=== PATIENT | male | born 1990 | race Caucasian/White ===

== ENCOUNTER 2024-04-07 18:57 | Emergency (ER) | payer OTHER, SELFPAY ==
[2024-04-07 19:22] VITALS: BP 109/59; PULSE 85; RESP 18; TEMP 36.7; O2SAT 97
--- NOTE | 2024-04-07 19:41 | ED.SKABFB ---
HPI - Skin/Abscess/Foreign Bdy General Chief complaint: Skin/Abscess/Foreign Body Stated complaint: skin discoloration stomach, irritation rt shoulder Time Seen by Provider: 04/07/24 19:12 Source: patient Mode of arrival: ambulatory Limitations: no limitations History of Present Illness HPI narrative: Nish is a 33 year old male patient presenting to the clinic today with complaints of a skin discoloration to his left lower abdomen where he gave himself a injection of step lb. He also reports some right lateral upper back paresthesia like pain. States it is sharp with movement at times and feels numb and feels as though there is pen is a needles. Related Data Home Medications ?Medication ?Instructions ?Recorded ?Confirmed ?Last Taken ?Type tirzepatide (weight loss) 10 mg subcut 04/07/24 Unknown History mg/0.5 mL subcutaneous pen injector (Zepbound) Allergies Allergy/AdvReac Type Severity Reaction Status Date / [facility] Allergy Mild Rash Verified 04/07/24 19:36 Review of Systems Review of Systems: Pertinent positives per HPI. Patient denies any fever, chills, headache, visual changes, dizziness, cough, runny nose, sore throat, shortness of breath, chest pain, palpitations, nausea, vomiting, diarrhea, constipation, abdominal pain, or any urinary issues. PMFSH Comments At the time of my signature, I reviewed and agree with the nursing past medical, surgical, social, and family history. There is no relevant family history pertinent to the patient complaint. Exam Narrative: General: Well-developed, well nourished, in no apparent distress Head: Normocephalic, atraumatic. Cardio: Regular rate and rhythm, s1 and s2 normal, no murmur appreciated. Resp: Clear to auscultation bilaterally, no rhonchi, rales, wheezing or rubs. Integumentary: Mancos, warm, and dry, intact without lesion, no rashes. Superficial Bruising noted to the left lower abdomen from injection without hematoma, no signs of infection, tenderness to palpation over the right upper back just lateral to the scapula, no redness, swelling, or rash. Course Course Emergency Course: Portions of this record may have been created with voice recognition software. Level of Care: Express Care Visit Vital Signs Vital signs: Vital Signs Temperature 36.7 C 04/07/24 19:22 Pulse Rate 85 04/07/24 19:22 Respiratory Rate 18 04/07/24 19:22 Blood Pressure 109/59 L 04/07/24 19:22 Pulse Oximetry 97 04/07/24 19:22 Oxygen Delivery Room Air 04/07/24 19:22 Temperature 36.7 C 04/07/24 19:22 Pulse Rate 85 04/07/24 19:22 Respiratory Rate 18 04/07/24 19:22 Blood Pressure 109/59 L 04/07/24 19:22 Pulse Oximetry 97 04/07/24 19:22 Oxygen Delivery Room Air 04/07/24 19:22 Vital signs reviewed MDM - Skin/Abscess/Foreign Bdy MDM Narrative Medical decision making narrative: At the time of visit patient is resting comfortably on the exam table. Patient appears to be nontoxic. Plan: I suspect patient has paresthesia to the right upper lateral back as well as superficial bruising to the left lower abdomen from medication injection. Supportive measures were discussed with the patient and they voiced understanding discharge instructions and agrees to treatment plan. Return precautions reviewed Differential Diagnosis Differential diagnosis: Likely abscess of skin or subcutaneous tissue, viral exanthem, dermatophytosis, urticaria, herpes zoster, allergic reaction to drug, cellulitis, eczema, insect bites, impetigo, contact dermatitis and other Discharge Plan Discharge Clinical Impression: Painful paresthesia Superficial bruising of abdominal wall Qualifiers: Encounter type: initial encounter Qualified Code(s): S30.1XXA - Contusion of abdominal wall, initial encounter Patient Disposition: Home, Self-Care Condition: Stable Instructions: Antibiotic Form, Contusion in Adults (ED), Paresthesia (ED) Additional Instructions: I suspect your paresthesias likely due to the medication your taking Bruising visualized on your abdomen likely from medication injection Take Medrol Dosepak if your paresthesia persist May take Tylenol/ibuprofen as needed for pain May apply Aspercreme, blue emu, or lidocaine to the affected area to help alleviate pain Follow-up with your primary care doctor next week if symptoms persist Patient Language: Estonian Prescriptions: New methylprednisolone [Medrol (Dl)] 4 mg tablets,dose pack See Rx Instructions PO .COMPLEX Qty: 21 0RF Rx Instructions: orally per package directions No Action Zepbound 10 mg/0.5 mL pen injector SUBCUT Follow-up/Referrals: UNKNOWN,DOCTOR [Primary Care Provider] - Time of Disposition: 19:38 Quality NIHSS Nursing Documentation ED NIHSS nursing documentation: reviewed/agree
--- OUTSIDE RECORDS SUMMARY | 2024-04-09 20:23 | XMS_ITS | Clinical Summary ---
Author Organization [facility] Address [address] [place] [address] Phone Care Team Providers Care Business Analyst Intern Name Role Phone Miscellaneous, Not In File Primary Care Provider Unavailable Corona Rodriguez MD Unavailable [phone] Allergies Active Allergy Reactions Criticality Noted Date Comments Cefaclor Unknown 12/08/1990 Pt doesn't know what his reaction was. Childhood reaction Medications esomeprazole DR (NexIUM) 40 mg capsule Take 1 capsule (40 mg total) by mouth 12/08/2009 Active omega 2-rty-tnz-fish oil (Fish OiL) 1,000 (120-180) mg capsule 01/13/2020 Active tirzepatide, weight loss, (Zepbound) 12.5 mg/0.5 mL pen injector 12/17/2023 Active Active Problems Problem Noted Date Diagnosed Date GERD (gastroesophageal reflux disease) 0 Encounters Date Type Department Care Team Description 03/10/2024 Orders Only [facility] [address] [place] [address] Unknown, Notinfile 03/09/2024 Documentation [facility] Ot[facility]ology [address], [address] [place] [address] Georgie Mayo CMA 02/18/2024 Orders Only [facility] [address] [place] [address] Unknown, Notinfile 02/09/2024 9:14 AM VOLTMETER OPERATOR - 02/09/2024 11:59 PM VOLTMETER OPERATOR Hospital Encounter [facility] ED [address] [place] [address] Pulsatile tinnitus Discharge Disposition: Discharge to home or self care 01/14/2024 3:40 PM CDT Office Visit [facility] Otolaryngology [address] [place] [address], [address] [place] [address] Manan Lawrence MD Tinnitus aurium, right (Primary Dx); 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 01/14/2024 3:00 PM CDT Procedure visit [facility] [address] [place] [address], [address] [place] [address] Impairment, auditory discrimination, bilateral (Primary Dx) 01/14/2024 Orders Only [facility]ology [address] [place] [address], [address] [place] [address] Georgie Mayo CMA Pulsatile tinnitus (Primary Dx) 01/14/2024 Orders Only [facility]ology [address] [place] [address], [address] [place] [address] Paty Gonzalez RMA Semicircular canal dehiscence syndrome (Primary Dx) from Last 3 Months Surgical History Surgery Date Site/Laterality Comments SINUS SURGERY 2020 Medical History Medical History Date Comments Allergic rhinitis GERD (gastroesophageal reflux disease) Family History Medical History Relation Name Comments Snoring Father Alec Rashes / Skin problems Mother Karhy Snoring Mother Karhy Relation Name Status Comments Father Alec Mother Karhy Social History Tobacco Use Types Packs/Day Years Used Date Smoking Tobacco: Never Tobacco Cessation:Counseling Given: Not Answered Sex and Gender Information Value Date Recorded Sex Assigned at Not on file Legal Sex Male 1:01 PM CDT Gender Identity Male 01/13/2024 5:03 PM CDT Sexual Orientation Not on file Obstetrics History Plan of Treatment Health Maintenance Due Date Last Done Comments Depression Screening 1989 Hepatitis C Screening 1989 DTaP/Tdap/Td Vaccine (1 - Tdap) 2000 Varicella Vaccines (1 of 2 - 13+ 2-dose series) 2002 Hepatitis B Screening 06/21/2007 Regular Well Visit/Exam 18-64 06/21/2007 Influenza Vaccine (#1) 2023 HPV Vaccines Aged Out No longer eligi ble based on patient's age to complete this topic Pneumococcal vaccine <65 Aged Out No longer eligible based on patient's age to complete this topic Procedures Procedure Name Priority Date/Time Associated Diagnosis Comments SURGICAL PATHOLOGY Routine 03/10/2024 12:10 PM VOLTMETER OPERATOR SURGICAL PATHOLOGY Routine 02/18/2024 12:[address] INTERNAL AUDITORY CANALS POSTERIOR FOSSA WO CONTRAST Schedule Routine, Read Routine (OP Routine) 02/09/2024 9:59 AM VOLTMETER OPERATOR Pulsatile tinnitus AUDBASE RESULTS 01/14/2024 3:35 PM CDT from Last 3 Months Results * Surgical pathology (03/10/2024 12:10 PM VOLTMETER OPERATOR) Skin, punch biopsy 03/10/2024 12:10 PM VOLTMETER OPERATOR 03/12/2024 7:16 AM VOLTMETER OPERATOR Narrative 03/13/2024 12:20 PM VOLTMETER OPERATOR [facility] results best viewed via link to PDF [facility] [address] [place] [address]., ??[address] [place] [address] ? [email or web address] Note to Patients: ??This report may contain a detailed description of human tissue sent by a health care provider to the laboratory for pathologic evaluation. ??The content of this report is essential for diagnosis and may provide important critical findings. ??This information may be unfamiliar to patients to review without a medical professional present. ?? It is advised that the patient review this report in the presence of a health care provider who can answer questions and explain the details. FINAL REPORT Patient Information: PATIENT NAME: ??SUDHEER QUARLES ? SEX: ??M ? : ??1990 (Age: 33) ? Specimen Information: COLLECTED: ??03/10/2024 ? RECEIVED: ??03/12/2024 ? REPORTED: ??03/13/2024 ? Submitting Physician Information: Xiao Joe, [facility]- [facility], [address] [place] [address] ??[id number], ? DERMATOPATHOLOGY REPORT RESULTS ?? DIAGNOSIS: SKIN, RIGHT SUPERIOR UPPER BACK, PUNCH BIOPSY: ? SCAR ? Note: ??There is no evidence of a neoplasm in these sections. exr/ajrr By this signature, I attest that the above diagnosis is based upon my personal examination of the slides(and/or other material indicated in the diagnosis). Demetrius Reyna M.D. ?? Report Electronically Reviewed and Signed Out By ??Demetrius Reyna M.D. 03/13/2024 12:20:51 CLINICAL INFORMATION EPIDERMAL INCLUSION CYST SPECIMEN DATA MICROSCOPIC DESCRIPTION: There is a proliferation of fibroblasts aligned parallel to the skin surface interposed among linearly arranged, thickened collagen bundles and small blood vessels. (L90.5) GROSS DESCRIPTION: Received in a formalin-containing bottle is a cylindrical piece of pale love, finely scaling, slightly wrinkled skin and adipose tissue measuring 0.5 by 0.5 by 1.0 cm. The surgical margin is inked blue. The specimen is sectioned into 2 pieces and submitted entirely in a single cassette. Also within the bottle is an irregularly shaped portion of pale love, mildly domed soft tissue measuring 0.7 by 0.3 by 0.3 cm. ??The specimen is sectioned into 1 pieces revealing pale love, mildly domed cut surfaces. ??The specimen is entirely submitted in a single cassette. dh/anc ICD-9 A; ZSD.1387 ? Clerical Data A; 12947 The characteristics of special, immunohistochemical, and immunofluorescence stains and in-situ hybridization tests performed by the [facility] were deemed acceptable in ongoing air quality manager measures and in compliance with regulations drawn from the Clinical Laboratory Improvement Act iz8997 (CLIA '88). Control reactions for all stains performed were deemed adequate and appropriate by a pathologist prior to evaluation of patient tissue. Some diagnoses were rendered with the assistance of laboratory-developed tests utilizing analyte-specific reagents; the performance characteristic of these tests were determined by [facility] and are not cleared or approved by the [place] Food an Drug administration. Laboratory developed test may only be performed in a facility that is certified by the [facility] as a high-complexity laboratory under CLIA '88. These tests are used for clinical purposes and are not investigational. us Notinfile Unknown LAB PATHOLOGY ORDERABLES Final Result * Surgical pathology (02/18/2024 12:00 AM VOLTMETER OPERATOR) Skin, shave biopsy 02/18/2024 02/19/2024 5:53 AM VOLTMETER OPERATOR Narrative 02/20/2024 11:25 AM VOLTMETER OPERATOR EPIC results best viewed via link to PDF [facility] [address] [place], [place] [address]., ??[address] [place] [address] ? [email or web address] Note to Patients: ??This report may contain a detailed description of human tissue sent by a health care provider to the laboratory for pathologic evaluation. ??The content of this report is essential for diagnosis and may provide important critical findings. ??This information may be unfamiliar to patients to review without a medical professional present. ?? It is advised that the patient review this report in the presence of a health care provider who can answer questions and explain the details. FINAL REPORT Patient Information: PATIENT NAME: ??EVON, WILL ? SEX: ??M ? : ??1990 (Age: 33) ? Specimen Information: COLLECTED: ??02/18/2024 ? RECEIVED: ??02/19/2024 ? REPORTED: ??02/20/2024 ? Submitting Physician Information: Xiao Joe, SAFETY ADMIN ASSISTANT- [facility], [address] [place] [address] ??[phone], ? DERMATOPATHOLOGY REPORT RESULTS ?? DIAGNOSIS: A. ??SKIN, RIGHT SUPERIOR OCCIPITAL SCALP, SHAVE BIOPSY: ? DERMAL MELANOCYTIC NEVUS ?? B. ??SKIN, RIGHT SUPERIOR UPPER BACK, SHAVE BIOPSY: ? DERMAL MELANOCYTIC NEVUS ?? C. ??SKIN, MID POSTERIOR NECK, SHAVE BIOPSY: ? COMPOUND MELANOCYTIC NEVUS yolette/ajrr By this signature, I attest that the above diagnosis is based upon my personal examination of the slides(and/or other material indicated in the diagnosis). Demetrius Reyna M.D. ?? Report Electronically Reviewed and Signed Out By ??Demetrius Reyna M.D. 02/20/2024 11:25:37 CLINICAL INFORMATION A. NEOPLASM OF UNCERTAIN BEHAVIOR VS. IRRITATED NEVUS B. NEOPLASM OF UNCERTAIN BEHAVIOR VS. DYSPLASTIC NEVUS C. NEOPLASM OF UNCERTAIN BEHAVIOR VS. IRRITATED NEVUS SPECIMEN DATA MICROSCOPIC DESCRIPTION: A-B. There are uniform nests, cords and strands of small, monomorphous melanocytes within the dermis. (D22.9) C. Enlarged monomorphous melanocytes are arranged as solitary units and nests at the dermo-epidermal junction and as uniform nests, cords and strands within the dermis. (D22.9) GROSS DESCRIPTION: A. Received in a formalin-containing bottle is a superficial fragment of pale love, finely scaling, and hair-bearing skin measuring 0.5 by 0.5 by 0.2 cm. The surgical margin is inked blue. The specimen is sectioned into 2 pieces and submitted entirely in a single cassette. Due to shrinkage, measurements may be different than those at the time of procedure. B. Received in a formalin-containing bottle is a superficial fragment of pale love, finely scaling, and hair-bearing skin measuring 0.6 by 0.5 by 0.2 cm. The surgical margin is inked blue. The specimen is sectioned into 2 pieces and submitted entirely in a single cassette. Due to shrinkage, measurements may be different than those at the time of procedure. C. Received in a formalin-containing bottle is a superficial fragment of pale love, finely scaling, and hair-bearing skin measuring 0.6 by 0.6 by 0.1 cm. The surgical margin is inked blue. The specimen is sectioned into 3 pieces and submitted entirely in a single cassette. Due to shrinkage, measurements may be different than those at the time of procedure. exr/dxv ICD-9 ZSD.407 ZSD.808 ? Clerical Data A; 84363 B; 21273 C; 18916 The characteristics of special, immunohistochemical, and immunofluorescence stains and in-situ hybridization tests performed by the [facility] were deemed acceptable in ongoing air quality manager measures and in compliance with regulations drawn from the Clinical Laboratory Improvement Act up9766 (CLIA '88). Control reactions for all stains performed were deemed adequate and appropriate by a pathologist prior to evaluation of patient tissue. Some diagnoses were rendered with the assistance of laboratory-developed tests utilizing analyte-specific reagents; the performance characteristic of these tests were determined by [facility] and are not cleared or approved by the [place] Food an Drug administration. Laboratory developed test may only be performed in a facility that is certified by the [facility] as a high-complexity laboratory under CLIA '88. These tests are used for clinical purposes and are not investigational. us Notinfile Unknown LAB PATHOLOGY ORDERABLES Final Result * CT Internal Auditory Canals Posterior Fossa WO Contrast (02/09/2024 9:59 AM VOLTMETER OPERATOR) Anatomical Region Laterality Modality Head and Neck N/A Computed Tomogra phy 02/10/2024 9:07 AM VOLTMETER OPERATOR Narrative 02/10/2024 10:23 AM VOLTMETER OPERATOR EXAM DESCRIPTION: ?? CT INTERNAL AUDITORY CANALS POSTERIOR FOSSA WO CONTRAST REASON FOR STUDY: Right aural fullness and pulsatile tinnitus since 2018 initially occurring status post septoplasty and turbinate surgery with eventual resolution (after unspecified duration) though with subsequent chronic intermittent right aural fullness in advance of right pulsatile tinnitus for the past few months. ??No alteration in hearing; no otalgia, otorrhea, or vertigo; no autophony or sensitivity to loud sounds; no provided history of trauma. ??No provided past medical history. ??Patient denies history of otologic surgeries. TECHNIQUE: Noncontrast thin section axial images through the temporal bones and skull base were obtained and reviewed at bone windows and bone algorithm with coronal. Automated exposure control was used as a dose optimization technique for this examination. COMPARISON: ?? No prior imaging available at time of interpretation. FINDINGS: RIGHT SIDE: EXTERNAL AUDITORY CANAL: ?? Widely patent. TYMPANIC MEMBRANE: ?? No masses, thickening, or medial retraction. OSSICLES: ?? Normal. ?? MIDDLE EAR, EPITYMPANUM and HYPOTYMPANUM: ?? No abnormal soft tissue, fluid, or mass with preservation of the scutum. INNER EAR STRUCTURES: ?? Normal vestibule and cochlea. ??Normal aqueducts. ?? Normal semicircular canals. INTERNAL AUDITORY CANAL: ?? Normal bony canal without narrowing or widening. ?? No calcified or ossified masses. TEMPOROMANDIBULAR JOINT: ?? No acute abnormality. MASTOID AIR CELLS: ?? Developed and well aerated. LEFT SIDE: EXTERNAL AUDITORY CANAL: ?? Widely patent. TYMPANIC MEMBRANE: ?? No masses, thickening, or medial retraction. OSSICLES: ?? Normal. ?? MIDDLE EAR, EPITYMPANUM and HYPOTYMPANUM: ?? No abnormal soft tissue, fluid, or mass with preservation of the scutum. INNER EAR STRUCTURES: ?? Normal vestibule and cochlea. ??Normal aqueducts. Normal semicircular canals. INTERNAL AUDITORY CANAL: ?? Normal bony canal without narrowing or widening. ?? No calcified or ossified masses. TEMPOROMANDIBULAR JOINT: ?? No acute abnormality. MASTOID AIR CELLS: ?? Well-developed with slight scattered fluid in the dependent most aspect of the left mastoid air cells. CENTRAL SKULL BASE: ?? Normal foramina. ??No lytic or blastic lesions. INFERIOR BRAIN: ?? Limited view poorly evaluated. LIMITED VIEW OF PARANASAL SINUSES IN THE FIELD OF VIEW: ?? No significant mucosal thickening and no fluid levels of the visualized paranasal sinuses. OTHER: ?? No other significant finding. IMPRESSION: ?? 1. ?? Slight scattered fluid in the dependent most aspect of the left mastoid air cells. 2. ?? Otherwise, unremarkable CT evaluation of temporal bone anatomy. THIS IS AN ELECTRONICALLY VERIFIED FINAL REPORT 02/10/2024 10:23 AM - Electronically signed by ??Ike KAISER D: ??02/10/2024 10:23 AM T: Report ID: [id number] Reading Location: ??[id number] Procedure Note Ike Newman MD - 02/10/2024 EXAM DESCRIPTION: CT INTERNAL AUDITORY CANALS POSTERIOR FOSSA WOCONTRAST REASON FOR STUDY: Right aural fullness and pulsatile tinnitus since 2018 initially occurring status post septoplasty and turbinate surgery with eventual resolution (after unspecified duration) though with subsequent chronic intermittent right aural fullness in advance of right pulsatile tinnitus for the past few months. No alteration in hearing; no otalgia, otorrhea, or vertigo; no autophony or sensitivity to loud sounds; noprovided history of trauma. No provided past medical history. Patient denieshistory of otologic surgeries. TECHNIQUE: Noncontrast thin section axial images through the temporalbones and skull base were obtained and reviewed at bone windows and bonealgorithm with coronal. Automated exposure control was used as a dose optimization technique for this examination. COMPARISON: No prior imaging available at time of interpretation. FINDINGS: RIGHT SIDE: EXTERNAL AUDITORY CANAL: Widely patent. TYMPANIC MEMBRANE: No masses, thickening, or medial retraction. OSSICLES: Normal. MIDDLE EAR, EPITYMPANUM and HYPOTYMPANUM: No abnormal soft tissue,fluid, or mass with preservation of the scutum. INNER EAR STRUCTURES: Normal vestibule and cochlea. Normal aqueducts. Normal semicircular canals. INTERNAL AUDITORY CANAL: Normal bony canal without narrowing orwidening. No calcified or ossified masses. TEMPOROMANDIBULAR JOINT: No acute abnormality. MASTOID AIR CELLS: Developed and well aerated. LEFT SIDE: EXTERNAL AUDITORY CANAL: Widely patent. TYMPANIC MEMBRANE: No masses, thickening, or medial retraction. OSSICLES: Normal. MIDDLE EAR, EPITYMPANUM and HYPOTYMPANUM: No abnormal soft tissue,fluid, or mass with preservation of the scutum. INNER EAR STRUCTURES: Normal vestibule and cochlea. Normal aqueducts. Normal semicircular canals. INTERNAL AUDITORY CANAL: Normal bony canal without narrowing orwidening. No calcified or ossified masses. TEMPOROMANDIBULAR JOINT: No acute abnormality. MASTOID AIR CELLS: Well-developed with slight scattered fluid in the dependent most aspect of the left mastoid air cells. CENTRAL SKULL BASE: Normal foramina. No lytic or blastic lesions. INFERIOR BRAIN: Limited view poorly evaluated. LIMITED VIEW OF PARANASAL SINUSES IN THE FIELD OF VIEW: No significant mucosal thickening and no fluid levels of the visualized paranasalsinuses. OTHER: No other significant finding. IMPRESSION: 1. Slight scattered fluid in the dependent most aspect of the leftmastoid air cells. 2. Otherwise, unremarkable CT evaluation of temporal bone anatomy. THIS IS AN ELECTRONICALLY VERIFIED FINAL REPORT 02/10/2024 10:23 AM - Electronically signed by Ike Newman M.D. AWILDA T: Report ID: [id number] Reading Location: [id number] us Manan Lawrence MD IMG CT PROCEDURES Final Res ult * [facility] Results (01/14/2024 3:35 PM CDT) us Provider Scanning AUDIOLOGY SERVICES ORDERABLES Final Result from Last 3 Months Insurance Nuvilex Nuv[employer] Care Teams Business Analyst Intern Relationship Specialty Start Date End Date Miscellaneous, Not In File PCP - General 03/12/24 Corona Rodriguez MD [id number] [facility] [address] [place] [address] Internal Medicine 03/12/24
--- OUTSIDE RECORDS SUMMARY | 2024-04-09 20:23 | XMS_ITS | Referral Summary ---
Author Organization [facility] Address [address] [place] [address] Phone Care Team Providers Care Stationary Engineer Supervisor Name Role Phone Miscellaneous, Not In File Primary Care Provider Unavailable Corona Rodriguez MD Unavailable [phone] Encounters Date Type Department Care Team Description 03/10/2024 Orders Only [facility] [address] [place] [address] Unknown, Notinfile 03/09/2024 Documentation [facility] Otolaryngology [address], [address] [place] [address] Georgie Mayo CMA 02/18/2024 Orders Only [facility] [address] [place] [address] Unknown, Notinfile 02/09/2024 9:14 AM EARLY CHILDHOOD TEACHER ASSISTANT - 02/09/2024 11:59 PM EARLY CHILDHOOD TEACHER ASSISTANT Hospital Encounter [facility] [address] [place] [address] Pulsatile tinnitus Discharge Disposition: Discharge to home or self care 01/14/2024 Orders Only [facility] Otolaryngology [address], [address] [place] [address] Georgie Mayo CMA Pulsatile tinnitus (Primary Dx) 01/14/2024 Orders Only [facility] Otolaryngology [address], [address] [place] [address] Paty Gonzalez RMA Semicircular canal dehiscence syndrome (Primary Dx) 01/14/2024 3:40 PM CDT Office Visit [facility] Otolaryngology 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, [address] [place] [address] Impairment, auditory discrimination, bilateral (Primary Dx) from Last 3 Months Allergies Active Allergy Reactions Criticality Noted Date Comments Cefaclor Unknown 12/08/1990 Pt doesn't know what his reaction was. Childhood reaction Medications esomeprazole DR (NexIUM) 40 mg capsule Take 1 capsule (40 mg total) by mouth 12/08/2009 Active omega 8-cyt-jma-fish oil (Fish OiL) 1,000 (120-180) mg capsule 01/13/2020 Active tirzepatide, weight loss, (Zepbound) 12.5 mg/0.5 mL pen injector 12/17/2023 Active Active Problems Problem Noted Date Diagnosed Date GERD (gastroesophageal reflux disease) 0 Social History Tobacco Use Types Packs/Day Years Used Date Smoking Tobacco: Never Tobacco Cessation:Counseling Given: Not Answered Sex and Gender Information Value Date Recorded Sex Assigned at Not on file Legal Sex Male 1:01 PM CDT Gender Identity Male 01/13/2024 5:03 PM CDT Sexual Orientation Not on file Plan of Treatment Not on file Procedures Procedure Name Priority Date/Time Associated Diagnosis Comments SURGICAL PATHOLOGY Routine 03/10/2024 12:10 PM EARLY CHILDHOOD TEACHER ASSISTANT SURGICAL PATHOLOGY Routine 02/18/2024 12:00 AM EARLY CHILDHOOD TEACHER ASSISTANT CT INTERNAL AUDITORY CANALS POSTERIOR FOSSA WO CONTRAST Schedule Routine, Read Routine (OP Routine) 02/09/2024 9:59 AM EARLY CHILDHOOD TEACHER ASSISTANT Pulsatile tinnitus AUDBASE RESULTS 01/14/2024 3:35 PM CDT from Last 3 Months Results * Surgical pathology (03/10/2024 12:10 PM EARLY CHILDHOOD TEACHER ASSISTANT) Skin, punch biopsy 03/10/2024 12:10 PM EARLY CHILDHOOD TEACHER ASSISTANT 03/12/2024 7:16 AM EARLY CHILDHOOD TEACHER ASSISTANT Narrative 03/13/2024 12:20 PM EARLY CHILDHOOD TEACHER ASSISTANT EPIC results best viewed via link to PDF [facility] [address] [place] [address] Ave., ??[address] [facility], [place] [address] ? [email or web address] Note to Patients: ??This report may [...] ??03/13/2024 ? Submitting Physician Information: Xiao Joe, [facility], [address] [place] [id number], ? DERMATOPATHOLOGY REPORT RESULTS ?? DIAGNOSIS: SKIN, [...] is entirely submitted in a single cassette. /[facility] ICD-9 A; ZSD.1387 ? Clerical Data A; 56389 The characteristics of special, immunohistochemical, and immunofluorescence stains and in-situ hybridization tests performed by the [facility] were deemed acceptable in ongoing quality control microbiology supervisor measures and in compliance with regulations drawn from the Clinical Laboratory Improvement Act [id number] (CLIA '88). Control reactions for all stains performed were deemed adequate and appropriate by a pathologist prior to evaluation of patient tissue. Some diagnoses were rendered with the assistance of laboratory-developed tests utilizing analyte-specific reagents; the performance characteristic of these tests were determined by [facility] and are not cleared or approved by the [place] Food an Drug administration. Laboratory developed test may only be performed in a facility that is certified by the [facility] as a high-complexity laboratory under CLIA '88. These tests are used for clinical purposes and are not investigational. us Notinfile Unknown LAB PATHOLOGY ORDERABLES Final Result * Surgical pathology (02/18/2024 12:00 AM EARLY CHILDHOOD TEACHER ASSISTANT) Skin, shave biopsy 02/18/2024 02/19/2024 5:53 AM EARLY CHILDHOOD TEACHER ASSISTANT Narrative 02/20/2024 11:25 AM EARLY CHILDHOOD TEACHER ASSISTANT EPIC results best viewed via link to PDF [facility] [address] [place] [address] , ??[address] [facility], [place] [address] ? [email or web address] Note to Patients: ??This report may contain [...] ??02/20/2024 ? Submitting Physician Information: Xiao Joe, [facility], [address] [place] [address] ??[id number], ? DERMATOPATHOLOGY REPORT RESULTS ?? DIAGNOSIS: A. [...] ICD-9 ZSD.407 ZSD.808 ? Clerical Data A; 97407 B; 60705 C; 77727 The characteristics of special, immunohistochemical, and immunofluorescence stains and in-situ hybridization tests performed by the [facility] were deemed acceptable in ongoing quality control microbiology supervisor measures and in compliance with regulations drawn from the Clinical Laboratory Improvement Act [id number] (CLIA '88). Control reactions for all stains performed were deemed adequate and appropriate by a pathologist prior to evaluation of patient tissue. Some diagnoses were rendered with the assistance of laboratory-developed tests utilizing analyte-specific reagents; the performance characteristic of these tests were determined by [facility] and are not cleared or approved by the [place] Food an Drug administration. Laboratory developed test may only be performed in a facility that is certified by the [facility] as a high-complexity laboratory under CLIA '88. These tests are used for clinical purposes and are not investigational. us Notinfile Unknown LAB PATHOLOGY ORDERABLES Final Result * CT Internal Auditory Canals Posterior Fossa WO Contrast (02/09/2024 9:59 AM EARLY CHILDHOOD TEACHER ASSISTANT) Anatomical Region Laterality Modality Head and Neck N/A Computed Tomogra phy 02/10/2024 9:07 AM EARLY CHILDHOOD TEACHER ASSISTANT Narrative 02/10/2024 10:23 AM EARLY CHILDHOOD TEACHER ASSISTANT EXAM DESCRIPTION: ?? CT INTERNAL AUDITORY CANALS [...] D: ??02/10/2024 10:23 AM T: Report ID: [id number] Reading Location: ??[id number] Procedure Note Ike Newman MD - 02/10/2024 [...] 10:23 AM - Electronically signed by Ike KAISER T: Report ID: [id number] Reading Location: [id number] us Manan Lawrence MD IMG CT PROCEDURES Final Res ult * AudBase Results (01/14/2024 3:35 PM CDT) Provider Scanning AUDIOLOGY SERVICES ORDERABLES Final Result from Last 3 Months Insurance Care Teams Stationary Engineer Supervisor Relationship Specialty Start Date End Date Miscellaneous, Not In File PCP - General 03/12/24 Corona Rodriguez MD [address] [facility] [address] [place] [address] Internal Medicine 03/12/24
--- OUTSIDE RECORDS SUMMARY | 2024-04-09 20:25 | XMS_ITS | Clinical Summary ---
Author Organization [facility] Address [address] [place] [address] Phone Care Team Providers Care General Operator Name Role Phone Selma Peng MD Unavailable [phone] Ana Solis APRN, PRODUCE PRODUCTION TEAM MEMBER Unavailable [phone] Orlin Gross MD Primary Care Provider [phone] Allergies Active Allergy Reactions Criticality Noted Date Comments Cefaclor Unknown 12/08/1990 Pt doesn't know what his reaction was. Medications esomeprazole (NEXIUM) 40 MG PO CAP-DEL-REL Take 1 Cap by mouth every morning (before breakfast). 30 Cap 0 12/08/2009 Active hydrocodone-muas taminophen (VICODIN) 5-500 MG PO TABS Take 1-2 Tabs by mouth every 4 hours as needed for Pain. Active Active Problems Problem Noted Date Diagnosed Date GERD (gastroesophageal reflux disease) 0 Social History Tobacco Use Types Packs/Day Years Used Date Smoking Tobacco: Never Alcohol Use Standard Drinks/Week Comments Yes 0 (1 standard drink = 0.6 oz pur e alcohol) Sex and Gender Information Value Date Recorded Sex Assigned at Not on file Legal Sex Male 3:55 AM GENERAL WAREHOUSE WORKER Gender Identity Not on file Sexual Orientation Not on file Last Filed Vital Signs Vital Sign Reading Time Taken Comments Blood Pressure 136/82 09/15/2012 4:14 AM CDT Pulse 83 09/15/2012 4:14 AM CDT Temperature 36.9 ??C (98.5 ??F) 09/15/2012 4:14 AM CD T Respiratory Rate 24 09/15/2012 4:14 AM CDT Oxygen Saturation 97% 09/15/2012 4:14 AM CDT Inhaled Oxygen Concentration - - Weight 99.8 kg (220 lb) 09/15/2012 4:14 AM CDT Height 182.9 cm (6') 09/15/2012 4:14 AM CDT Body Mass Index 29.84 09/15/2012 4:14 AM CDT Plan of Treatment Health Maintenance Due Date Last Done Comments Hepatitis C Virus (HCV) Screening 1989 TdaP Immunization 1989 Hepatitis B Immunization (1 of 3 - 19+ 3-dose series) 2008 Influenza Immunization (#1) 2023 SARS-COV-2 Immunization ( - 2023- season) 2023 Respiratory Syncytial Virus (RSV) Immunization (Adult) (1 - 1-dose 75+ series) 2064 Meningococcal Immunization (ACWY) Aged Out No longer eligible based on patient's age to complete this topic Pneumococcal Immunization Combined Aged Out No longer eligible based on patient's age to complete this topic Rotavirus Immunization Aged Out No lo nger eligible based on patient's age to complete this topic Care Teams General Operator Relationship Specialty Start Date End Date Orlin Gross MD [address] [place] [address] PCP - General Internal Medicine 09/15/12 Selma Peng MD [address] [place] [address] 02/25/11 Ana Solis, DESIZING PAD OPERATOR, PRODUCE PRODUCTION TEAM MEMBER [facility] [address] [place] [place] [address] 02/25/11
== END 2024-04-07 19:42 | disposition home or self-care (01) ==
PROVIDERS: Emergency Provider Nurse Practitioner Family
DX: R20.2 Paresthesia of skin (principal); S30.1XXA Contusion of abdominal wall, initial encounter; X58.XXXA Exposure to other specified factors, initial encounter
CPT/HCPCS: 99203; G0463